=== PATIENT | female | born 1985 | race Caucasian/White ===

== ENCOUNTER → 2018-09-21 15:05 | Outpatient (CLI) | payer BC, SELFPAY ==
[2018-09-21 17:22] LABS: Chlamydia Trachomatis by PCR Negative (Negative); Neisserai gonorrhoeae by PCR Negative (Negative); Probe Check PASS; Sample Adequacy Control PASS; Specimen Processing Control PASS
[2018-09-27 13:21] LABS: HPV Reflexed? NOT INDICATED
== END ==
PROVIDERS: Visit Provider Obstetrics & Gynecology
DX: Z12.4 Encounter for screening for malignant neoplasm of cervix (principal); Z11.3 Encounter for screening for infections with a predominantly sexual mode of transmission
CPT/HCPCS: 87491; 87591; 88175; G0145

== ENCOUNTER → 2018-10-03 14:22 | Outpatient (CLI) | payer BC, SELFPAY ==
[2018-10-03 15:46] LABS: Absolute Lymphocyte Count 1.86 X10^3/ul (0.83-4.51); Absolute Neutrophil Count 6.4 X10^3/uL (2.0-7.7); Basophil# 0.02 X10^3/uL; Basophil% 0.2 % (0-1); Eosinophils% 1.1 % (0-5); Hematocrit 42.6 % (37-47); Hemoglobin 13.8 g/dl (12.0-15.0); Lymphocyte # 1.86 X10^3/ul (4.0); Lymphocyte % 20.5 % (19-41); Mean Corp Hgb Conc 32.4 g/gl (32-36); Mean Corpuscular Hgb 29.9 pg (27.0-32.0); Mean Corpuscular Volume 92.2 fL (81-99); Mean Platelet Vol. 11.7 fl (6.2-12.0); Monocyte# 0.65 X10^3/uL; Monocyte% 7.2 % (0-10); Neutrophil # 6.44 X10^3/uL (2.7-7.7); Neutrophil % 70.8 % (47-70); Platelet Count 248 K/mm3 (150-450); RBC Distribution Width CV 13.7 % (11.6-14.6); RBC Distribution Width SD 45.6 fl (35.1-43.9); Red Blood Count 4.62 M/mm3 (4.2-5.4); White Blood Count 9.1 K/mm3 (4.4-11.0)
[2018-10-03 15:47] LABS: POSITIVE COUNT NO; POSITIVE DIFFERENTIAL NO; POSITIVE MORPHOLOGY NO
[2018-10-03 16:02] LABS: COTININE Drug Screen Negative (<200 ng/mL)
[2018-10-03 16:06] LABS: Amphetamine Urine VISTA NEGATIVE (<1000 ng/mL); Barbiturate Urine VISTA NEGATIVE (< 200 ng/mL); Benzodiazepine Urine VISTA NEGATIVE (< 200 ng/mL); Cocaine Urine VISTA NEGATIVE (< 300 ng/mL); Ecstacy Urine VISTA NEGATIVE (< 500 ng/mL); Methadone Urine VISTA NEGATIVE (< 300 ng/mL); PCP Urine VISTA NEGATIVE (< 25 ng/mL); THC Urine VISTA NEGATIVE (< 50 ng/mL); Vista UDS pH Range 5
[2018-10-03 16:10] LABS: Thyroid Stim Hormone (TSH) 0.75 uIU/mL (0.358-3.74)
[2018-10-03 16:31] LABS: Color, Urine Yellow (Yellow); Glucose, Dipstick Normal (Normal); Ketone-Dipstick Negative (Negative); Leukocyte Esterase-Dipstick Negative /ul (Negative); Nitrite-Dipstick Negative (Negative); Occult Blood-Urine Negative /ul (Negative); Protein-Dipstick Negative (Negative); Urine Bilirubin Dipstick Negative (Negative); Urine Clarity Sl. Cloudy (Clear); Urine Urobilinogen Normal (Normal)
[2018-10-03 16:46] LABS: HIV - WCH Non-Reactive (Nonreactive); Rubella IgG 5.3 IU/mL
[2018-10-05 01:35] LABS: Prenatal RPR NONREACTIVE (NONREACTIVE)
[2018-10-07 11:27] LABS: HEPATITIS B SURFACE AG Negative (Negative); Hep C Antibodies <0.1 s/co ratio (0.0-0.9)
== END ==
PROVIDERS: Visit Provider Obstetrics & Gynecology
DX: Z34.81 Encounter for supervision of other normal pregnancy, first trimester (principal)
CPT/HCPCS: 36415; 80307; 81002; 84443; 85025; 86703; 86762; 86803; 87340

== ENCOUNTER → 2018-11-29 12:18 | Outpatient (CLI) | payer MEDICAID, SELFPAY ==
[2018-12-04 03:07] LABS: AFP MoM Value 1.18 (.); AFP Value-EIA 47.4 ng/mL (.); Comment Report (.); DIA MoM Value 0.68 (.); DIA Value-EIA 122.17 pg/mL (.); DSR (By Age) 428 (.); DSR (Second Trimester) 10000 (.); Gestat. Age Based On As provided (.); Gestational Age 17.1 WEEKS (.); Insulin Dep Diabetes No (.); Maternal Age At EDD 33.2 yr (.); hCG MoM 1.13 (.)
== END ==
PROVIDERS: Visit Provider Obstetrics & Gynecology
DX: Z34.82 Encounter for supervision of other normal pregnancy, second trimester (principal)
CPT/HCPCS: 36415; 82105; 82677; 84702; 86336

== ENCOUNTER → 2019-02-20 10:34 | Outpatient (CLI) | payer MEDICAID, SELFPAY ==
[2019-02-20 14:22] LABS: Hematocrit 33.5 % (37-47); Hemoglobin 10.8 g/dl (12.0-15.0); Mean Corp Hgb Conc 32.2 g/gl (32-36); Mean Corpuscular Hgb 29.8 pg (27.0-32.0); Mean Corpuscular Volume 92.3 fL (81-99); Platelet Count 219 K/mm3 (150-450); RBC Distribution Width CV 13.1 % (11.6-14.6); RBC Distribution Width SD 42.7 fl (35.1-43.9); Red Blood Count 3.63 M/mm3 (4.2-5.4); Scan Indicated on CBC? Y/N NO; White Blood Count 9.6 K/mm3 (4.4-11.0)
[2019-02-20 14:26] LABS: Glucose Challenge Gest 1H 50g 97 mg/dL (70-140)
== END ==
PROVIDERS: Visit Provider Obstetrics & Gynecology
DX: Z34.83 Encounter for supervision of other normal pregnancy, third trimester (principal)
CPT/HCPCS: 36415; 82950; 85027; 86850

== ENCOUNTER → 2019-04-11 | Outpatient (CLI) | payer MEDICAID, SELFPAY | END | disposition home or self-care (01) | PROVIDERS: Visit Provider Obstetrics & Gynecology | DX: Z36.85 Encounter for antenatal screening for Streptococcus B (principal) | CPT/HCPCS: 87081 ==

== ENCOUNTER 2019-05-08 22:15 | Outpatient (CLI) | payer MEDICAID, SELFPAY ==
[2019-05-08 22:43] VITALS: BMI 28.9
== END 2019-05-08 23:58 | disposition home or self-care (01) ==
LOC: WPOUT 22:42 → WP 22:42
PROVIDERS: Visit Provider Obstetrics & Gynecology
DX: O46.93 Antepartum hemorrhage, unspecified, third trimester (principal); Z3A.40 40 weeks gestation of pregnancy
CPT/HCPCS: 59025; 59050; 99218; G0378

== ENCOUNTER 2019-05-10 07:35 | Inpatient (IN) | payer MEDICAID, SELFPAY ==
--- NOTE | 2019-05-09 08:09 | OB.TRI.HP_ITS ---
History of Present Illness Date of Service: 05/08/19 Was patient seen by the physician?: No Reason For Visit: LABOR AND DELIVERY Date of Service: 05/08/19 Final KYLAH: 05/08/19 Final KYLAH Source: US <20 weeks Gestational age: 40 Weeks and 1 Days History of Present Illness: Complaints of some vaginal bleeding which was light. No significant contractions. No signs of SROM Allergies No Known Allergies Allergy (Verified 05/08/19 22:49) Physical Exam General: Alert, Oriented x3, Cooperative, No apparent distress Abdomen: Soft, Non Tender, Non-Distended, Gravid, Appropriate for Gestational Age Neurological: Neuro grossly intact [employer]ER: Normal external genitalia Estimated gestational size: Appropriate for gestational size Presentation: Cephalic Cervix Dilation (cm): 0 Station: -2 Effacement (%): 50 NST - FHR Rate Baby A Baseline: 160s Variability:: Moderate Accelerations:: 15 x 15 Decelerations:: None NST Reactive:: Yes, Appropriate for gestational age FHR Category:: Category I Uterine Activity:: none Impression/Plan Bleeding was scant. No signs of SROM. CAT 1 FHR tracing. No change in cervical exam. Plan for scheduled induction 05/10.
[2019-05-10 07:43] VITALS: BMI 29.5
[2019-05-10] MEDS: Lactated Ringers 1,000 ML 50 ML IV ×4 (08:00→23:06)
[2019-05-10 08:24] LABS: Absolute Lymphocyte Count 1.77 X10^3/ul (0.83-4.51); Absolute Neutrophil Count 5.9 X10^3/uL (2.0-7.7); Basophil# 0.01 X10^3/uL; Basophil% 0.1 % (0-1); Eosinophil# 0.08 X10^3/uL; Hematocrit 34.7 % (37-47); Hemoglobin 11.1 g/dl (12.0-15.0); Lymphocyte # 1.77 X10^3/ul (4.0); Mean Corpuscular Hgb 26.9 pg (27.0-32.0); Mean Corpuscular Volume 84.2 fL (81-99); Mean Platelet Vol. 12.5 fl (6.2-12.0); Monocyte# 0.61 X10^3/uL; Monocyte% 7.2 % (0-10); Neutrophil # 5.89 X10^3/uL (2.7-7.7); POSITIVE COUNT NO; POSITIVE DIFFERENTIAL NO; POSITIVE MORPHOLOGY NO; Platelet Count 229 K/mm3 (150-450); RBC Distribution Width CV 14.5 % (11.6-14.6); RBC Distribution Width SD 43.2 fl (35.1-43.9); Red Blood Count 4.12 M/mm3 (4.2-5.4); White Blood Count 8.4 K/mm3 (4.4-11.0)
[2019-05-10] MEDS: 0.9% Normal Saline 100 ML IV.SOLN. INTRA-UTER (08:30)
[2019-05-10] MEDS: Oxytocin 30 units/NS 500 ml 30 UNITS/500 ML IV.SOLN IV (08:30)
--- NOTE | 2019-05-10 13:07 | PCM.PN.OB ---
Subjective: Feeling contractions. Objective: Afeb VSS FHR tracing CAT 1. - Physical Exam General: Alert, Oriented x3, Cooperative, No apparent distress Abdomen: Soft, Non Tender, Non-Distended, Gravid, Appropriate for Gestational Age Skin: No rashes Neurological: Neuro grossly intact Psych/Mental Status: Normal Affect Comment: Lin balloon spontaneously expelled Weight: 166 lb 14.239 oz Body Mass Index (BMI) 29.5 Laboratory Tests Past 24 Hrs 05/10/19 05/10/19 05/10/19 08:00 08:00 08:00 WBC 8.4 RBC 4.12 L Hgb 11.1 L Hct 34.7 L MCV 84.2 MCH 26.9 L MCHC 32.0 RDW 14.5 RDW Differential 43.2 Plt Count 229 MPV 12.5 H Immature Gran % (Auto) 0.700 Neut % (Auto) 70.0 Lymph % (Auto) 21.0 [place] % (Auto) 7.2 Eos % (Auto) 1.0 Baso % (Auto) 0.1 Absolute Neuts (auto) 5.9 Absolute Lymphs (auto) 1.77 Total Counted Not Reportable Blood Type A NEGATIVE Antibody Screen TNP NEGATIVE Medical Necessity - Tobacco Use Smoking Status: Former smoker Assessment/Plan AROM performed with clear fluid noted.
[2019-05-10] MEDS: fentaNYL-bupivacaine (epidural) 100 ML BAG EPIDURAL ×2 (14:57→19:38)
[2019-05-10] MEDS: Ondansetron 4 MG/2 ML Vial IV (19:06)
[2019-05-10] MEDS: Acetaminophen 325 MG Tablet PO (22:01)
[2019-05-11] MEDS: fentaNYL-bupivacaine (epidural) 100 ML BAG EPIDURAL (00:22)
[2019-05-11] MEDS: Oxytocin 30 units/NS 500 ml 30 UNITS/500 ML IV.SOLN 334 UNITS IV (02:05)
[2019-05-11] MEDS: Oxytocin 30 units/NS 500 ml 30 UNITS/500 ML IV.SOLN 167 UNITS IV (02:35)
--- NOTE | 2019-05-11 02:35 | PCM.OPRPT ---
Vaginal Delivery Maternal Presentation: Medically Indicated Induction Admitted at 40w2d ega for induction of labor secondary to oligohydramnios Method of Induction: Pitocin, Lin Bulb Medical Reason for Induction: Compromise: list: - oligohydramnios Amniotic Membrane Rupture Type: Artificial Rupture of Membrane time: 1245 Amniotic Fluid Description: Clear Final KYLAH: 05/08/19 Final KY[facility] Source: US <20 weeks Gestational age: 40 Weeks and 3 Days doctor who attended delivery (if requested by OB): Jennifer Antunez Date of Procedure: 05/11/19 Pre-Operative Diagnosis: Labor, chorioamnionitis, meconium Post-Operative Diagnosis: same Surgery/ Procedure Performed: Spontaneous Vaginal Delivery Anesthesiologist: Ghanshyam Domínguez Type of Anesthesia: Epidural Description of Procedure: Admited at 1cm dilation. Lin bulb/pitocin induction started. Lin bulb spontaneously expelled after 4 hours. AROM performed. Developed a fever with tachycardia and was placed on antibiotics. Progressed to fully dilated over the next 12 hours then pushed for about 20 minutes to deliver a live male . Thick meconium was present. Mouth was suctioned with bulb suction at delivery the cord was cut and the baby taken to the warmer for evaluation. Dr. Antunez was at delivery. The placenta was delivered spontaneously intact and was meconium stained. The uterus contracted well. Inspection revealed a small first degree left periurethral tear and and a small first degree posterior vaginal tear. These were repaired with 3-0 Rapide and 2-0 Vicryl sutures respectively. Presentation: Vertex Placental Delivery Description: Spontaneous Placenta Disposition: Sent to Pathology Percentage of Placenta Abruption: 0 Cord Vessel Description: 3 Vessels Nuchal Cord Compression: With compression Cord Gases drawn per routine: ABG, VBG Cord Entanglement: None Drain: Lin to straight drain Estimated Blood Loss: 200cc A gender: Male (1 minute): 1 (5 minute): 7 - 9 at 10 minutes Episiotomy Description: None Laceration: Midline, Periurethral Extnsion/lac, Vaginal Extension/lac, 1st degree Medications given after delivery: IV Pitocin Complications: None
--- NOTE | 2019-05-11 02:52 | DCINST_ITS ---
Discharge Diet: No Restrictions Discharge Activity: Return to Normal Activity Return to work on:: 07/11/19 May shower in (days): 0 May resume sexual activity in: 6 weeks Call your doctor if your incision/area has: Sudden Increased Bleeding, Increased Pain/ Swelling, Foul Smelling Discharge Call your doctor if you observe: Fever of 101 or Higher, Inability to urinate, Inability to have a bowel movement, Using more than one pad per hour, Shortness of breath, Chest pain, Calf discomfort, Uncontrolled pain Cleanse incision/area with: Soap & Water Additional Instructions: If you experience any of the following, contact your healthcare provider. * Bleeding that soaks a pad every hour for 2 hours * Fever 100.4 or higher * Unrelieved incision or abdominal pain * Swelling, redness, discharge or bleeding from your incision or episiotomy site * Your incision begins to separate * Problems urinating (including inability to urinate or burning while urinating). * Visual changes * Severe headache * Flu-like symptoms * Pain or redness in one of both of your breasts * Pain, warmth, tenderness or swelling in your legs, especially the calf area * Frequent nausea and vomiting * Symptoms of depression or anxiety If you experience any of the following, call 911 or go to the nearest Emergency Room. * Chest pain * Problems breathing * Seizure activity * Partial or complete paralysis of a body part, slurred speech, weakness or drooping of the face, or a sudden inability to walk or hold your balance Allergies/Adverse Reactions: Allergies No Known Allergies Allergy (Verified 05/08/19 22:49) Medications to take at Discharge Vits [Prenatabs FA ] 1 tab PO DAILY 05/08/19 Ibuprofen [Motrin] 600 mg PO Q6H PRN PRN #30 tab 05/11/19 The following prescriptions were given: Ibuprofen [Motrin] 600 mg PO Q6H PRN PRN #30 tab PRN Reason: pain or cramping Prescription Printed Please Follow Up With: Vazquez Manzano MD When: 6 weeks Primary Care Physician: Care Physician,No Primary [Primary Care Provider] - Test Results: Test results from this visit will be discussed in further detail at your follow- up appointment, if applicable. Proposed Discharge Date: 05/13/19
--- NOTE | 2019-05-11 02:59 | NURSING ---
baby transferred to SCN, mother started pumping at this time. Education given to mother and FOB
[2019-05-11] MEDS: Ibuprofen 600 MG Tablet PO ×3 (04:08→21:42)
[2019-05-11] MEDS: 0.9% Saline Lock 10 ML Syringe IV (04:08)
[2019-05-11 04:15] VITALS: BP 136/81; PULSE 101; RESP 16; TEMP 36.8
[2019-05-11 09:09] VITALS: BP 115/75; PULSE 88; RESP 16; TEMP 36.9
--- NOTE | 2019-05-11 09:17 | PCM.PN.OB ---
Subjective: Tired but feeling well. Bleeding appropriate. Denies fevers. Objective: Afeb VSS - Physical Exam General: Alert, Oriented x3, Cooperative, No apparent distress Lungs: Clear to auscultation, Normal air movement Cardiovascular: Regular rate, Regular Rhythm Abdomen: Soft, Non Tender, Non-Distended, - - Fundus firm nontender Extremities: Edema - trace LE Skin: No rashes Neurological: Neuro grossly intact Psych/Mental Status: Normal Affect Comment: Lochia appropriate Vital Signs Temp Pulse Resp BP 98.5 F 88 16 115/75 05/11/19 09:09 05/11/19 09:09 05/11/19 09:09 05/11/19 09:09 Oxygen Delivery Method Room Air Weight: 166 lb 14.239 oz Body Mass Index (BMI) 29.5 Intake and Output for Last 24 Hours 05/09/19 05/10/19 05/11/19 23:59 23:59 23:59 Intake Total 5295 / 5295 1097 / 1097 Output Total 1550 / 1550 3900 / 3900 Balance 3745 / 3745 -2803 / -2803 Laboratory Tests Past 24 Hrs 05/10/19 05/10/19 05/11/19 08:00 08:00 04:00 Blood Type A NEGATIVE Antibody Screen TNP NEGATIVE Screen NEGATIVE Baby's Blood Type A POSITIVE Baby's BRIJESH NEGATIVE Medical Necessity - Tobacco Use Smoking Status: Former smoker Assessment/Plan doing well on PP day#0. No fevers today. Will hold off on any antibiotics unless fever developes. Continue routine PP care. baby in special care nursery.
[2019-05-11] MEDS: Acetaminophen 500 MG Tablet 1000 MG PO ×2 (09:21→18:39)
[2019-05-11 13:06] VITALS: BP 112/73; PULSE 80; RESP 18; TEMP 36.6
[2019-05-11 17:09] VITALS: BP 124/74; PULSE 81; RESP 16; TEMP 36.9; O2SAT 97
[2019-05-11 21:45] VITALS: BP 125/83; PULSE 80; RESP 20; TEMP 36.4
[2019-05-12 01:50] VITALS: BP 132/67; PULSE 98; RESP 18; TEMP 36.6
[2019-05-12 07:29] VITALS: BP 118/73; PULSE 81; RESP 16; TEMP 37.3
[2019-05-12] MEDS: Senna/Docusate Sodium 1 Tablet PO (07:36)
[2019-05-12] MEDS: Acetaminophen 500 MG Tablet 1000 MG PO ×3 (07:37→23:29)
--- NOTE | 2019-05-12 08:28 | PN.OBGYN_ITS ---
Subjective: Doing well. Some cramping with breast feeding. Bleeding light. Objective: Afeb VSS - Physical Exam General: Alert, Oriented x3, Cooperative, No apparent distress Abdomen: Soft, Non Tender, Non-Distended, - - Fundus firm nontender Extremities: Edema - trace LE Skin: No rashes Neurological: Neuro grossly intact Psych/Mental Status: Normal Affect Comment: Lochia light Vital Signs Temp Pulse Resp BP Pulse Ox 99.1 F 81 16 118/73 97 05/12/19 07:29 05/12/19 07:29 05/12/19 07:29 05/12/19 07:29 05/11/19 17:09 Oxygen Delivery Method Room Air Weight: 166 lb 14.239 oz Body Mass Index (BMI) 29.5 Intake and Output for Last 24 Hours 05/10/19 05/11/19 05/12/19 23:59 23:59 23:59 Intake Total 5295 / 5295 1097 / 1097 Output Total 1550 / 1550 3900 / 3900 Balance 3745 / 3745 -2803 / -2803 Medical Necessity - Tobacco Use Smoking Status: Former smoker Assessment/Plan Doing well on PP day1. [facility] baby in special care nursery treated with antibiotics. Discussed discharge warnings today.
--- NOTE | 2019-05-12 08:31 | PCM.DC.SUM ---
Discharge Date and Diagnosis Date of Admission: 05/10/19 Date of Discharge: 05/13/19 - Primary Discharge Diagnosis S/P Hospital Course and Treatment Operations: None Procedures: - - Lin/Pitocin induction, epidural, Summary of Care Provided: The patient is a 34 year old F [admitted for induction of labor secondary to oligohydramnios. Lin pitocin induction was started and she progressed to FD. She developed fever in labor and was treated for suspected chorioamnionitis. She delivered a live male who had some initial respiratory difficulties but responded well to pediatric interventions. Baby was admitted to special care for antibiotic treatment. Post course was unremarkable. Was discharged on PP day#2.] - Physical Exam Vital Signs Temp Pulse Resp BP Pulse Ox 99.1 F 81 16 118/73 97 05/12/19 07:29 05/12/19 07:29 05/12/19 07:29 05/12/19 07:29 05/11/19 17:09 Oxygen Delivery Method Room Air Weight: 166 lb 14.239 oz Body Mass Index (BMI) 29.5 Intake and Output for Last 24 Hours 05/10/19 05/11/19 05/12/19 23:59 23:59 23:59 Intake Total 5295 / 5295 1097 / 1097 Output Total 1550 / 1550 3900 / 3900 Balance 3745 / 3745 -2803 / -2803 Discharge Diet: No Restrictions Discharge Activity: Return to Normal Activity Return to work on:: 07/11/19 May shower in (days): 0 May resume sexual activity in: 6 weeks Call your doctor if your incision/area has: Sudden Increased Bleeding, Increased Pain/ Swelling, Foul Smelling Discharge Call your doctor if you observe: Fever of 101 or Higher, Inability to urinate, Inability to have a bowel movement, Using more than one pad per hour, Shortness of breath, Chest pain, Calf discomfort, Uncontrolled pain Cleanse incision/area with: Soap & Water Home Medications: Medications to take at Discharge RX: Vits [Prenatabs FA ] 1 tab PO DAILY 05/08/19 RX: Ibuprofen [Motrin] 600 mg PO Q6H PRN PRN #30 tab 05/11/19 Following Prescrptions Were Given to Patient: RX: Ibuprofen [Motrin] 600 mg PO Q6H PRN PRN #30 tab PRN Reason: pain or cramping Prescription Printed Primary Care Physician: Care Physician,No Primary [Primary Care Provider] - Please Follow Up With: Vazquez Manzano MD When: 6 weeks Disposition: Home Minutes spent on discharge:: 15 Patient Condition:: Good Medical Necessity - Tobacco Use Smoking Status: Former smoker Meaningful Use Info Meaningful Use Diagnoses (Choose all that apply): None applicable
[2019-05-12 14:22] VITALS: BP 124/77; PULSE 87; RESP 16; TEMP 36.9; O2SAT 98
[2019-05-12 15:49] LABS: Hematocrit 30.1 % (37-47); Hemoglobin 9.6 g/dl (12.0-15.0); Mean Corp Hgb Conc 31.9 g/gl (32-36); Mean Corpuscular Hgb 26.9 pg (27.0-32.0); Mean Corpuscular Volume 84.3 fL (81-99); Mean Platelet Vol. 11.5 fl (6.2-12.0); Platelet Count 209 K/mm3 (150-450); RBC Distribution Width CV 14.9 % (11.6-14.6); RBC Distribution Width SD 46.2 fl (35.1-43.9); Red Blood Count 3.57 M/mm3 (4.2-5.4); White Blood Count 15.4 K/mm3 (4.4-11.0)
[2019-05-12 15:51] LABS: Scan Indicated on CBC? Y/N NO
[2019-05-12 20:05] VITALS: BP 132/89; PULSE 83; RESP 18; TEMP 36.6
[2019-05-13 02:00] VITALS: BP 123/78; PULSE 80; RESP 18; TEMP 36.9
--- NOTE | 2019-05-13 07:59 | PCM.PN.OB ---
Subjective: PPD#2 vaginal sofia Doing well. Rady to go home JULES. Baby is in SCN and to be dischg today. Pt in bathroom, in SCN during initial attempts to round. - Physical Exam General: Alert, Oriented x3, Cooperative, No apparent distress HEENT: Atraumatic Neck: Supple Psych/Mental Status: Normal Affect Vital Signs Temp Pulse Resp BP Pulse Ox 98.5 F 80 18 123/78 H 98 05/13/19 02:00 05/13/19 02:00 05/13/19 02:00 05/13/19 02:00 05/12/19 14:22 Oxygen Delivery Method Room Air Weight: 75.7 kg Body Mass Index (BMI) 29.5 Intake and Output for Last 24 Hours 05/11/19 05/12/19 05/13/19 23:59 23:59 23:59 Intake Total 1097 / 1097 Output Total 3900 / 3900 Balance -2803 / -2803 Laboratory Tests Past 24 Hrs 05/12/19 15:40 WBC 15.4 H RBC 3.57 L Hgb 9.6 L Hct 30.1 L MCV 84.3 MCH 26.9 L MCHC 31.9 L RDW 14.9 H RDW Differential 46.2 H Plt Count 209 MPV 11.5 Medical Necessity - Tobacco Use Smoking Status: Former smoker Assessment/Plan PPD#2 Vaginal delivery Stable pp. Dischg home today. RTO in 6 wk for pp check, prn sooner.
[2019-05-13 09:30] VITALS: BP 125/81; PULSE 76; RESP 18; TEMP 36.3
== END 2019-05-13 11:05 | disposition home or self-care (01) | DRG 542 ==
PROVIDERS: Admitting Provider Obstetrics & Gynecology; Referring Provider Obstetrics & Gynecology; Visit Provider Obstetrics & Gynecology
DX: O41.03X0 Oligohydramnios, third trimester, not applicable or unspecified (principal); O48.0 Post-term pregnancy; Z3A.40 40 weeks gestation of pregnancy; O77.0 Labor and delivery complicated by meconium in amniotic fluid; O69.1XX0 Labor and delivery complicated by cord around neck, with compression, not applicable or unspecified; O71.5 Other obstetric injury to pelvic organs; O71.4 Obstetric high vaginal laceration alone; Z37.0 Single live birth; O46.93 Antepartum hemorrhage, unspecified, third trimester
CPT/HCPCS: 59025; 59050; 85025; 85027; 85461; 86850; 86900; 90384; 99218; J7120; A4216; G0378; J2405; J2790

== ENCOUNTER 2019-05-31 11:40 | Outpatient (CLI) | payer MEDICAID, SELFPAY | END 2019-05-31 12:10 | disposition home or self-care (01) | LOC: WPOUT 11:45 → WP 11:46 | PROVIDERS: Referring Provider Obstetrics & Gynecology; Visit Provider Obstetrics & Gynecology | DX: O92.79 Other disorders of lactation (principal) | CPT/HCPCS: 96152 ==

== ENCOUNTER → 2020-03-16 12:02 | Outpatient (CLI) | payer MEDICAID, SELFPAY ==
[2020-03-16 13:01] LABS: Absolute Lymphocyte Count 1.55 X10^3/uL (0.83-4.51); Absolute Neutrophil Count 5.3 X10^3/uL (2.0-7.7); Basophil# 0.03 X10^3/uL; Basophil% 0.4 % (0-1); Eosinophil# 0.04 X10^3/uL; Eosinophils% 0.5 % (0-5); Hematocrit 41.2 % (37-47); Hemoglobin 13.3 g/dL (12.0-15.0); Lymphocyte # 1.55 X10^3/ul (4.0); Mean Corp Hgb Conc 32.3 g/dL (32-36); Mean Corpuscular Volume 89.8 fL (81-99); Mean Platelet Vol. 11.9 fl (6.2-12.0); Monocyte# 0.41 X10^3/uL; Monocyte% 5.6 % (0-10); NRBC Flagged by Analyzer 0 % (0-5); Neutrophil # 5.32 X10^3/uL (2.7-7.7); Neutrophil % 72.1 % (47-70); Platelet Count 220 K/mm3 (150-450); RBC Distribution Width CV 13.7 % (11.6-14.6); RBC Distribution Width SD 44.5 fl (35.1-43.9); Red Blood Count 4.59 M/mm3 (4.2-5.4); White Blood Count 7.4 K/mm3 (4.4-11.0)
[2020-03-16 13:07] LABS: Color, Urine Yellow (Yellow); Glucose, Dipstick Normal (Normal); Ketone-Dipstick Negative (Negative); Leukocyte Esterase-Dipstick Negative /ul (Negative); Nitrite-Dipstick Negative (Negative); Occult Blood-Urine Negative /ul (Negative); Protein-Dipstick Negative (Negative); Urine Bilirubin Dipstick Negative (Negative); Urine Clarity Sl. Cloudy (Clear); Urine Urobilinogen Normal (Normal)
[2020-03-16 13:24] LABS: Amphetamine Urine VISTA NEGATIVE (<1000 ng/mL); Barbiturate Urine VISTA NEGATIVE (< 200 ng/mL); Benzodiazepine Urine VISTA NEGATIVE (< 200 ng/mL); Cocaine Urine VISTA NEGATIVE (< 300 ng/mL); Ecstacy Urine VISTA NEGATIVE (< 500 ng/mL); Methadone Urine VISTA NEGATIVE (< 300 ng/mL); PCP Urine VISTA NEGATIVE (< 25 ng/mL); THC Urine VISTA NEGATIVE (< 50 ng/mL); Vista UDS pH Range 5
[2020-03-16 13:37] LABS: Thyroid Stim Hormone (TSH) 0.64 uIU/mL (0.358-3.74)
[2020-03-16 14:09] LABS: HIV - WCH Non-Reactive (Nonreactive); Hepatitis B Surface Antigen Non-Reactive (Nonreactive); Hepatitis C Antibody Non-Reactive (Nonreactive); Rubella IgG 172.7 IU/mL
[2020-03-16 16:10] LABS: Chlamydia Trachomatis by PCR Negative (Negative); Neisserai gonorrhoeae by PCR Negative (Negative); Probe Check PASS; Sample Adequacy Control PASS; Specimen Processing Control PASS
[2020-03-19 01:34] LABS: Prenatal RPR NONREACTIVE (NONREACTIVE)
== END ==
PROVIDERS: Referring Provider Obstetrics & Gynecology; Visit Provider Obstetrics & Gynecology
DX: Z34.81 Encounter for supervision of other normal pregnancy, first trimester (principal)
CPT/HCPCS: 80307; 81002; 84443; 85025; 86703; 86762; 86803; 87340; 87491; 87591

== ENCOUNTER → 2020-07-16 09:51 | Outpatient (CLI) | payer MEDICAID, SELFPAY ==
[2020-07-16 10:59] LABS: Hematocrit 34.5 % (37-47); Mean Corp Hgb Conc 31.9 g/dL (32-36); Mean Corpuscular Hgb 29.9 pg (27.0-32.0); Mean Corpuscular Volume 93.8 fL (81-99); Mean Platelet Vol. 11.6 fl (6.2-12.0); Platelet Count 204 K/mm3 (150-450); RBC Distribution Width CV 13.6 % (11.6-14.6); RBC Distribution Width SD 46.1 fl (35.1-43.9); Red Blood Count 3.68 M/mm3 (4.2-5.4); White Blood Count 7.6 K/mm3 (4.4-11.0)
[2020-07-16 11:00] LABS: Glucose Challenge Gest 1H 50g 87 mg/dL (70-140)
== END ==
PROVIDERS: Visit Provider Obstetrics & Gynecology
DX: Z34.83 Encounter for supervision of other normal pregnancy, third trimester (principal)
CPT/HCPCS: 36415; 82950; 85027

== ENCOUNTER → 2020-09-14 15:12 | Outpatient (CLI) | payer MEDICAID, SELFPAY | PROVIDERS: Visit Provider Student in an Organized Health Care Education/Training Program | DX: Z36.85 Encounter for antenatal screening for Streptococcus B (principal) | CPT/HCPCS: 87081 ==

== ENCOUNTER 2020-09-30 19:00 | Outpatient (CLI) | payer MEDICAID, SELFPAY ==
[2020-09-30 19:12] VITALS: BMI 29.3
[2020-09-30 19:18] VITALS: BP 116/76; PULSE 79; TEMP 36.3; O2SAT 97
[2020-09-30 20:10] VITALS: BP 149/74; PULSE 78; TEMP 36.7; O2SAT 99
[2020-09-30 20:12] VITALS: BP 120/81; PULSE 75
--- NOTE | 2020-10-14 09:21 | OB.TRI.NOTE ---
History of Present Illness Date of Service: 09/30/20 Was patient seen by the physician?: No Reason For Visit: R/O LABOR Date of Service: 09/30/20 Final KYLAH: 10/08/20 Final KYLAH Source: US <20 weeks Gestational age: 38 Weeks and 6 Days History of Present Illness: 38+ week intrauterine presents with complaints of contractions every 5 minutes. Here to rule out labor. Allergies No Known Allergies Allergy (Verified 10/07/20 03:14) Physical Exam Vitals: Vital Signs Temp Pulse BP Pulse Ox 98.0 F 75 120/81 H 99 09/30/20 20:10 09/30/20 20:12 09/30/20 20:12 09/30/20 20:10 NST - FHR Rate Baby A NST Reactive:: Yes FHR Category:: Category I Impression/Plan 36+ week intrauterine with false labor. Cervix unchanged at 1 to 2 cm 40% effaced -3 station. Reactive nonstress test. Will release to home with routine instructions.
== END 2020-09-30 20:30 | disposition home or self-care (01) ==
LOC: WPOUT 19:11 → OBT 19:11
PROVIDERS: Visit Provider Obstetrics & Gynecology
DX: O47.03 False labor before 37 completed weeks of gestation, third trimester (principal); Z3A.36 36 weeks gestation of pregnancy
CPT/HCPCS: 59025; 59050; 99218; G0378

== ENCOUNTER → 2020-10-06 17:31 | Outpatient (CLI) | payer MEDICAID, SELFPAY ==
[2020-09-30 19:12] VITALS: BMI 29.3
== END ==
PROVIDERS: Referring Provider Student in an Organized Health Care Education/Training Program; Visit Provider Student in an Organized Health Care Education/Training Program
DX: Z11.59 Encounter for screening for other viral diseases (principal)
CPT/HCPCS: 87635; C9803; U0003

== ENCOUNTER 2020-10-07 03:03 | Inpatient (IN) | payer MEDICAID, SELFPAY ==
[2020-10-07] VITALS (28 sets, daily range): BP systolic 103–159; BP diastolic 64–97; PULSE 30–108; RESP 16–18; TEMP 36.4–37.3; O2SAT 84–100; BMI 28.7
[2020-10-07] MEDS: Lactated Ringers 1,000 ML 50 ML IV (03:15)
[2020-10-07 03:31] LABS: Absolute Lymphocyte Count 1.83 X10^3/uL (0.83-4.51); Absolute Neutrophil Count 5.7 X10^3/uL (2.0-7.7); Basophil# 0.03 X10^3/uL; Basophil% 0.4 % (0-1); Eosinophil# 0.03 X10^3/uL; Eosinophils% 0.4 % (0-5); Hematocrit 40.6 % (37-47); Hemoglobin 12.7 g/dL (12.0-15.0); Lymphocyte # 1.83 X10^3/ul (4.0); Lymphocyte % 22.5 % (19-41); Mean Corp Hgb Conc 31.3 g/dL (32-36); Mean Corpuscular Hgb 29.1 pg (27.0-32.0); Mean Corpuscular Volume 92.9 fL (81-99); Mean Platelet Vol. 12.5 fl (6.2-12.0); Monocyte% 6.2 % (0-10); NRBC Flagged by Analyzer 0 % (0-5); Neutrophil # 5.67 X10^3/uL (2.7-7.7); Neutrophil % 69.6 % (47-70); Platelet Count 183 K/mm3 (150-450); RBC Distribution Width CV 14.3 % (11.6-14.6); RBC Distribution Width SD 48.5 fl (35.1-43.9); Red Blood Count 4.37 M/mm3 (4.2-5.4); White Blood Count 8.1 K/mm3 (4.4-11.0)
[2020-10-07] MEDS: 0.9% Saline Lock 10 ML Syringe IV (04:39)
--- NOTE | 2020-10-07 06:57 | PCM.HPOB.BLA ---
History and Physical Date of Admission: 10/07/20 HPI: 35 yo at 39/6w, KYLAH 10/08/20 by LMP c/w 10w US, admitted for spontaneous rupture of membranes at home at 1230 last night. Denies regular contractions, VB. +FM. Denies MENDOZA, vision changes chest pain, dyspnea, nausea/emesis. This is complicated by: nothing Obstetrical History G1: FT , oligo induction. [place] G2: current Past Medical History Denies Medications PNV Past Surgical History Tonsillectomy, adenoidectomy, wisdom teeth extraction Social History Tobacco use: former Alcohol use: denies Illicit drug use: denies Labs Blood type: A neg Rubella: immune Hep B: neg HIV: neg RPR: nonreactive 1 hour GTT: wnl GBS: neg 09/21 Allergies NKDA Review of Systems General: alert and oriented HEENT: _denies change of vision Heart/lungs: _denies CP, SOB GI: _denies nausea, vomiting, dysuria, diarrhea MSK: _denies calf pain, tenderness Physical Exam Vital Signs Temp Pulse BP Pulse Ox 10/07/20 06:26 98.1 F 83 103/65 99 10/07/20 04:28 97.5 F L 10/07/20 04:26 77 113/75 99 10/07/20 03:08 97.7 F L 80 142/79 H 99 General: a&o x3, NAD HEENT: normocephalic, atraumatic Cardio: no JVD Resp: no increased work in breathing Abdomen: soft, gravid, nontender Extremities: minimal-moderate edema CE: 4cm on admission per RN FHT: 135/mod jacqueline/+accel/no decel [place]: irregular Labs Laboratory Results - last 24 hr 10/07/20 10/07/20 03:15 03:15 WBC 8.1 RBC 4.37 Hgb 12.7 Hct 40.6 MCV 92.9 MCH 29.1 MCHC 31.3 L RDW Std Deviation 48.5 H RDW Coeff of Jacqueline 14.3 Plt Count 183 MPV 12.5 H Immature Gran % (Auto) 0.900 Neut % (Auto) 69.6 Lymph % (Auto) 22.5 [place] % (Auto) 6.2 Eos % (Auto) 0.4 Baso % (Auto) 0.4 Absolute Neuts (auto) 5.7 Absolute Lymphs (auto) 1.83 Nucleated RBC % 0 Blood Type A NEGATIVE Antibody Screen NEGATIVE Assessment & Plan 35 yo at 39/6w, KYLAH 10/08/20 by LMP c/w 10w US, admitted for prelabor rupture of membranes. uncomplicated. -Admit to L&D -Consider augmentation with pitocin if not cervical change in a few hours. Discussed plan with patient and her . -GBS neg 09/21
[2020-10-07] MEDS: Oxytocin 30 units/NS 500 ml 30 UNITS/500 ML IV.SOLN IV (10:24)
[2020-10-07] MEDS: Ondansetron 4 MG/2 ML Vial IV (13:14)
[2020-10-07] MEDS: Lactated Ringers 1,000 ML 200 ML IV (14:21)
--- NOTE | 2020-10-07 14:30 | PCM.PN.BLA ---
Progress Note Patient seen and evaluated. Uncomfortable with contractions. No epidural. Cervical exam /-2, AROM forebag clear fluid. heart rate: 140/moderate relative variability/positive accelerations/no decelerations. [place]: Every 2-4. Continue Pitocin augmentation. STROKE Vital Signs/Narrative: Vital Signs Temp Pulse BP Pulse Ox 10/07/20 14:25 98.8 F 76 119/77 10/07/20 12:58 98.2 F 73 114/70 10/07/20 12:08 98.6 F 76 124/77 H 10/07/20 11:04 97.9 F 10/07/20 11:03 68 126/78 H 99
[2020-10-07] MEDS: Oxytocin 30 units/NS 500 ml 30 UNITS/500 ML IV.SOLN 334 UNITS IV (15:28)
--- NOTE | 2020-10-07 15:51 | PCM.OPRPT ---
Vaginal Delivery Maternal Presentation: Spontaneous Rupture of Membranes Method of Induction: Pitocin Amniotic Membrane Rupture Type: Spontaneous at home Amniotic Fluid Description: Clear Final KYLA[facility]: 10/08/20 Final KY[facility] Source: LMP Gestational age: 39 Weeks and 6 Days Date of Procedure: 10/07/20 Pre-Operative Diagnosis: Spontaneous rupture of membranes, hills intrauterine Post-Operative Diagnosis: Spontaneous rupture of membranes, hills intrauterine Surgery/ Procedure Performed: Spontaneous Vaginal Delivery Type of Anesthesia: None Description of Procedure: Precipitous, spontaneous delivery of viable infant male. No nuchal cord. Baby to mom, cord clamped and cut. Spontaneous delivery of placenta. Second degree laceration repaired in usual fashion after lidocaine injection, hemostatic. APGARS 8/9, EBL 400cc. Presentation: Vertex Cord Vessel Description: 3 Vessels
--- NOTE | 2020-10-07 15:54 | DCINST_ITS ---
<Francia Judge - Last Filed: 10/07/20 15:54> Discharge Activity: Return to Normal Activity, May Shower May resume sexual activity in: 6 weeks Weight Bearing Status: Weight bearing as tolerated Call your doctor if you observe: Fever of 101 or Higher, Inability to urinate, Inability to have a bowel movement, Using more than one pad per hour, Shortness of breath, Uncontrolled pain Additional Instructions: If you experience any of the following, contact your healthcare provider. * Bleeding that soaks a pad every hour for 2 hours * Fever 100.4 or higher * Unrelieved incision or abdominal pain * Swelling, redness, discharge or bleeding from your incision or episiotomy site * Your incision begins to separate * Problems urinating (including inability to urinate or burning while urinating). * Visual changes * Severe headache * Flu-like symptoms * Pain or redness in one of both of your breasts * Pain, warmth, tenderness or swelling in your legs, especially the calf area * Frequent nausea and vomiting * Symptoms of depression or anxiety If you experience any of the following, call 911 or go to the nearest Emergency Room. * Chest pain * Problems breathing * Seizure activity * Partial or complete paralysis of a body part, slurred speech, weakness or drooping of the face, or a sudden inability to walk or hold your balance Allergies/Adverse Reactions: Allergies No Known Allergies Allergy (Verified 10/07/20 03:14) Medications to take at Discharge Vits [Prenatabs FA ] 1 tab PO DAILY 05/08/19 Please Follow Up With: Francia Judge DO When: 2week telehealth, 6 week in person Primary Care Physician: Care Physician,No Primary [Primary Care Provider] - Test Results: Test results from this visit will be discussed in further detail at your follow- up appointment, if applicable. Proposed Discharge Date: 10/08/20 <David Judge - Last Filed: 10/08/20 09:56> Additional Instructions: If you experience any of the following, contact your healthcare provider. * Bleeding that soaks a pad every hour for 2 hours * Fever 100.4 or higher * Unrelieved incision or abdominal pain * Swelling, redness, discharge or bleeding from your incision or episiotomy site * Your incision begins to separate * Problems urinating (including inability to urinate or burning while urinating). * Visual changes * Severe headache * Flu-like symptoms * Pain or redness in one of both of your breasts * Pain, warmth, tenderness or swelling in your legs, especially the calf area * Frequent nausea and vomiting * Symptoms of depression or anxiety If you experience any of the following, call 911 or go to the nearest Emergency Room. * Chest pain * Problems breathing * Seizure activity * Partial or complete paralysis of a body part, slurred speech, weakness or drooping of the face, or a sudden inability to walk or hold your balance Test Results: Test results from this visit will be discussed in further detail at your follow- up appointment, if applicable.
[2020-10-07] MEDS: Ibuprofen 600 MG Tablet PO (16:21)
[2020-10-07] MEDS: Methylergonovine 0.2 MG/ML Ampul IM (16:24)
[2020-10-08] MEDS: Ibuprofen 600 MG Tablet PO (03:26)
[2020-10-08 05:12] VITALS: BP 109/67; PULSE 94; RESP 16; TEMP 36.5; O2SAT 99
[2020-10-08] MEDS: Acetaminophen 500 MG Tablet 1000 MG PO (08:36)
[2020-10-08 08:40] VITALS: BP 110/75; PULSE 92; RESP 16; TEMP 37.2; O2SAT 97
--- NOTE | 2020-10-08 09:54 | PN.OBGYN_ITS ---
Subjective: No overnight complaints. Pain well controlled. Minimal lochia. - Physical Exam Vitals/I&O's: Vital Signs Temp Pulse Resp BP Pulse Ox 99.0 F 92 16 110/75 97 10/08/20 08:40 10/08/20 08:40 10/08/20 08:40 10/08/20 08:40 10/08/20 08:40 Oxygen Delivery Method Room Air Weight: 157 lb Body Mass Index (BMI) 28.7 Intake and Output for Last 24 Hours 10/06/20 10/07/20 10/08/20 23:59 23:59 23:59 Intake Total 1586.59 / 1586.59 Output Total 350 / 350 Balance 1236.59 / 1236.59 General: Alert, Oriented x3, Cooperative HEENT: Atraumatic, PERRLA Oral: Moist Mucosa Neck: Supple Abdomen: Soft, Non Tender, - - Fundus firm and below umbilicus Extremities: No clubbing, No cyanosis, No edema Neurological: Neuro grossly intact Psych/Mental Status: Normal Affect, Appropriate, Alert and oriented to time, place, person, mood and affect Microbiology Past 72 Hours 10/07/20 03:55 Mucosa - Nose SARS-CoV-2 Antigen (Rapid) - Final Laboratory Results 10/07/20 16:35: Screen NEGATIVE, Baby's Blood Type A POSITIVE, Baby's BRIJESH NEGATIVE Current Medications Acetaminophen (Acetaminophen 500 Mg Tablet) 1,000 mg PO Q8H PRN PRN PRN Reason: Pain Score 1-3 Last Admin: 10/08/20 08:36 Dose: 1,000 mg Documented by: Bisacodyl (Bisacodyl 10 Mg Suppository) 10 mg RECTAL UD PRN PRN Reason: If no BM Dibucaine (Dibucaine 30 Gm Tube) 1 applic TOPICAL TID PRN PRN; Protocol PRN Reason: Discomfort Hydrocortisone (Hydrocortisone 2.5% Crm) 1 applic TOPICAL TID PRN PRN; Protocol PRN Reason: Discomfort Ibuprofen (Ibuprofen 600 Mg Tablet) 600 mg PO Q6H PRN PRN PRN Reason: Pain Score 1-3 Last Admin: 10/08/20 03:26 Dose: 600 mg Documented by: Methylergonovine Maleate (Methylergonovine 0.2 Mg/Ml Ampul) 0.2 mg IM X1 PRN PRN Reason: Excess bleeding/uterine atony Last Admin: 10/07/20 16:24 Dose: 0.2 mg Documented by: Ondansetron HCl (Ondansetron 4 Mg/2 Ml Vial) 4 mg IV Q4H PRN PRN PRN Reason: Nausea Oxycodone HCl (Oxycodone 5 Mg Tablet) 5 - 10 mg PO Q4H PRN PRN PRN Reason: Pain Score 4-10 Senna/Docusate Sodium (Senna/Docusate Sodium 1 Tablet) 1 - 2 tablet PO DAILY PRN PRN PRN Reason: Constipation Simethicone (Simethicone 80 Mg Tablet) 80 mg PO PCHS PRN PRN Reason: Indigestion/Stomach pain Sodium Chloride (0.9% Saline Lock 10 Ml Syringe) 5 - 15 ml IV UD PRN PRN Reason: SALINE FLUSH Medical Necessity - Tobacco Use Smoking Status: Never smoker Assessment/Plan day 1. Breast-feeding. Pain well controlled. Okay to discharge home if okay with certified peer specialist
[2020-10-08 11:30] VITALS: BP 115/71; PULSE 83; RESP 16; TEMP 36.8
[2020-10-08 15:47] VITALS: BP 120/69; PULSE 82; RESP 16; TEMP 37
--- NOTE | 2020-10-08 16:00 | CASEMGMT ---
Social Work Brief Assessment Labor and Delivery Unit Refer documentation below for further details. 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 Introduced role and reason for referral. MOB and FOB openly discussed MOB's history of PPD. MOB reports has a 17 month old, Alfredo at home. MOB reports did not know signs and symptoms at the time. MOB states was in counseling at [facility] and last appointment was in April. MOB reports if needed, will be going back to counselor. MOB and FOB report now know the signs to watch out for. Provided MOB and FOB with educational information on PPD and resources for [facility]. MOB reports good support from FOB and friends. MOB denies any needs for self or baby boy, Hipolito. MOB and FOB awaiting discharge instructions at this time. Updated nursing on the above. Plan: Home with resources provided No further needs requested or indicated.
== END 2020-10-08 17:10 | disposition home or self-care (01) | DRG 560 ==
LOC: WP 03:05
PROVIDERS: Admitting Provider Student in an Organized Health Care Education/Training Program; Referring Provider Student in an Organized Health Care Education/Training Program; Visit Provider Student in an Organized Health Care Education/Training Program
DX: O62.3 Precipitate labor (principal); O70.1 Second degree perineal laceration during delivery; Z37.0 Single live birth; Z3A.39 39 weeks gestation of pregnancy; Z87.891 Personal history of nicotine dependence
CPT/HCPCS: 59050; 85025; 85461; 86850; 86900; 86901; 87426; 87635; 90384; 99218; C9803; J7120; A4216; G0378; J2405; J2790; U0003

== ENCOUNTER 2022-01-25 16:49 | Outpatient (CLI) | payer MEDICAID, SELFPAY ==
[2022-01-31 13:28] LABS: HPV APTIMA, High Risk Negative (Negative)
== END 2022-01-25 23:59 | disposition home or self-care (01) ==
PROVIDERS: Visit Provider Student in an Organized Health Care Education/Training Program
DX: Z12.4 Encounter for screening for malignant neoplasm of cervix (principal)
CPT/HCPCS: 87624; 88175; G0145

== ENCOUNTER → 2023-07-13 | Outpatient (CLI) | payer MEDICAID, SELFPAY ==
--- NOTE | 2023-07-13 09:38 | US_ITS ---
EXAM: Diagnostic bilateral breast mammogram and diagnostic bilateral breast ultrasound REASON FOR EXAM: Female, 38 years old. Bilateral lateral breast pain and palpable lumpiness and tenderness to touch. PERTINENT HISTORY: No reported family or personal history of breast cancer. TECHNIQUE: Digital bilateral breast monique (3D mammographic acquisition) in the CC and MLO projections. 2-D mediolateral oblique (MLO) and craniocaudad (CC) views of the bilateral breasts were obtained. CAD: Full Field Digital Mammography with Computer Added Detection was performed. Real-time jimenez scale and color sonographic images were obtained of the right lateral breast from the 6:00 to 12:00 position in the clinical area of concern. Real-time jimenez scale and color sonographic images were obtained of the left lateral breast from the 12:00 to 6:00 position in the clinical area of concern. COMPARISON: None. FINDINGS: Mammogram findings: Breast Composition: The breasts are extremely dense, which lowers the sensitivity of mammography. There are no suspicious masses or suspicious calcifications in the bilateral breasts. No other significant findings. Ultrasound was obtained for assessment of bilateral palpable findings. Ultrasound findings: Right breast: The right lateral breast was assessed from the 6:00 to 12:00 position. There are no suspicious masses or abnormal fluid collections in the imaged breast. Left breast: The left lateral breast was assessed from the 12:00 to 6:00 position. There are no suspicious masses or abnormal fluid collections in the imaged breast. IMPRESSION: No mammographic findings suggestive of malignancy. No ultrasound findings suggestive of malignancy. ASSESSMENT CATEGORY: BIRADS Category 1: Negative. A letter regarding these results will be sent to the patient by the facility within 30 days. Recommendation: No further imaging follow-up is recommended. Follow up with physical examination recommended. Repeat ultrasound can be obtained if clinical concerns for new or enlarging palpable finding. Approximately 10% of breast cancers are not detected by mammography. A normal mammogram should not delay biopsy of a clinically suspicious abnormality. Electronically Signed: Miah Mobley DO at 14:30 EDT , EXAM: Diagnostic bilateral breast mammogram and diagnostic bilateral breast ultrasound REASON FOR EXAM: Female, 38 years old. Bilateral lateral breast pain and palpable lumpiness and tenderness to touch. PERTINENT HISTORY: No reported family or personal history of breast cancer. TECHNIQUE: Digital bilateral breast monique (3D mammographic acquisition) in the CC and MLO projections. 2-D mediolateral oblique (MLO) and craniocaudad (CC) views of the bilateral breasts were obtained. CAD: Full Field Digital Mammography with Computer Added Detection was performed. Real-time jimenez scale and color sonographic images were obtained of the right lateral breast from the 6:00 to 12:00 position in the clinical area of concern. Real-time jimenez scale and color sonographic images were obtained of the left lateral breast from the 12:00 to 6:00 position in the clinical area of concern. COMPARISON: None. FINDINGS: Mammogram findings: Breast Composition: The breasts are extremely dense, which lowers the sensitivity of mammography. There are no suspicious masses or suspicious calcifications in the bilateral breasts. No other significant findings. Ultrasound was obtained for assessment of bilateral palpable findings. Ultrasound findings: Right breast: The right lateral breast was assessed from the 6:00 to 12:00 position. There are no suspicious masses or abnormal fluid collections in the imaged breast. Left breast: The left lateral breast was assessed from the 12:00 to 6:00 position. There are no suspicious masses or abnormal fluid collections in the imaged breast. US/Breast Limited Unilateral
== END | disposition home or self-care (01) ==
LOC: OPBI 09:34
PROVIDERS: Referring Provider Student in an Organized Health Care Education/Training Program; Visit Provider Student in an Organized Health Care Education/Training Program
DX: N64.4 Mastodynia (principal)
CPT/HCPCS: 77062; 76642; 77066; G0279